=== PATIENT | male | born 1990 | race Hispanic/Latino ===

== ENCOUNTER 2019-11-19 00:56 | Emergency (ER) | payer OTHER | END 2019-11-19 01:22 | disposition home or self-care (01) | LOC: EDH 00:56 | DX: S31.21XA Laceration without foreign body of penis, initial encounter (principal); Z88.0 Allergy status to penicillin; Z72.0 Tobacco use; W51.XXXA Accidental striking against or bumped into by another person, initial encounter; Y93.89 Activity, other specified; Y92.410 Unspecified street and highway as the place of occurrence of the external cause; Y99.8 Other external cause status | CPT/HCPCS: 99281 ==